=== PATIENT | female | born 1930 | race Asian ===

== ENCOUNTER 2016-09-10 17:53 | Emergency (ER) | payer OTHER ==
[~2016-09-10] VITALS: Ht 154.9 cm; Wt 76.3 kg
[2016-09-10] MEDS ORDERED: PROP10 PO (17:57)
[2016-09-10] MEDS ORDERED: VALS160T2 PO (17:57)
[2016-09-10] MEDS ORDERED: ATOR10TA84 PO (17:57)
[2016-09-10] MEDS ORDERED: METF500T4 PO (17:57)
[2016-09-10] MEDS ORDERED: AMLO-512 PO (17:57)
[2016-09-10 18:50] LABS: GLUCOSE,POINT OF CARE 198 MG/DL (70-110)
[2016-09-10] MEDS ORDERED: ALBUTEROL SULFATE 2.5 MG/0.5 ML NEB SOLUTION NEB ONE (20:00)
[2016-09-10 20:07] LABS: GLUCOSE,POINT OF CARE 117 MG/DL (70-110)
[2016-09-10 20:30] LABS: BASOPHILS % (AUTO) 0.4 % (0.0-2.0); EOSINOPHILS % (AUTO) 1.7 % (1.0-6.0); HEMATOCRIT 37.6 % (36-46); HEMOGLOBIN 12.2 g/dL (12.0-16.0); LYMPHOCYTES # (AUTO) 1.7 K/uL (1.0-4.8); LYMPHOCYTES % (AUTO) 17.1 % (22.0-44.0); MEAN CORPUSCULAR HEMOGLOBIN 29.1 pg (26.0-34.0); MEAN CORPUSCULAR HGB CONC 32.3 G/dL (31.0-37.0); MEAN CORPUSCULAR VOLUME 90 fL (80-100); MONOCYTES # (AUTO) 0.9 K/uL (0.1-1.0); MONOCYTES % (AUTO) 9.7 % (2.0-9.0); NEUTROPHILS # (AUTO) 6.9 K/uL (1.8-7.7); NEUTROPHILS % (AUTO) 71.1 % (40.0-70.0); PLATELET COUNT (AUTO) 243 K/uL (150-450); RED BLOOD CELL COUNT(AUTO) 4.18 MIL/uL (4.00-5.20); RED CELL DISTRIBUTION WIDTH 14.1 % (11.5-14.5); WHITE BLOOD COUNT (AUTO) 9.7 K/uL (4.5-11.0)
[2016-09-10 20:32] LABS: ANION GAP 3 mmol/L (8-16); CALCIUM, TOTAL 9.4 mg/dL (8.8-10.5); CARBON DIOXIDE 31 mmol/L (22-29); CHLORIDE 102 mmol/L (98-107); CREATININE 0.82 mg/dL (0.60-1.30); GLOMERULAR FILTR. RATE CALC > 60 mL/min (>60); SODIUM SERUM 136 mmol/L (136-145); UREA NITROGEN, BLOOD 23 mg/dL (7-18)
[2016-09-10 20:39] LABS: ALANINE AMINOTRANSFERASE 27 U/L (12-78); ALBUMIN 3.2 g/dL (3.4-5.0); ASPARTATE AMINOTRANSFERASE 21 U/L (15-37); BILIRUBIN,TOTAL 0.3 mg/dL (0.1-1.0); TOTAL PROTEIN, SERUM 7.3 g/dL (6.4-8.2)
[2016-09-10 20:52] LABS: B-TYPE NATRIURETIC PEPTIDE 89 pg/mL (0-100)
[2016-09-10] MEDS ORDERED: IPRATROPIUM BROMIDE 0.5 MG/2.5 ML NEB SOLUTION NEB ONE (21:15)
[2016-09-10] MEDS ORDERED: PredniSONE 20 MG TABLET PO ONE (21:30)
[2016-09-10 21:50] VITALS: BP 141/82
[2016-09-10] MEDS ORDERED: ALBUTEROL SULFATE HFA 90 MCG/PUFF 8 GM INHALER IH ONE (22:00)
== END 2016-09-10 22:58 | disposition home or self-care (01) ==
LOC: EMS 17:54
DX: R05 Cough (principal); E78.00 Pure hypercholesterolemia, unspecified; E11.9 Type 2 diabetes mellitus without complications; I11.0 Hypertensive heart disease with heart failure; I50.9 Heart failure, unspecified
CPT/HCPCS: 36415; 71020; 80053; 82962; 83880; 84484; 85025; 85379; 93005; 94060; 94640; 99285; J7512; J3535

== ENCOUNTER → 2016-12-03 | Outpatient (CLI) | payer OTHER ==
[~2016-12-03] MED LIST: AMLO-512 PO; ATOR10TA84 PO; METF500T4 PO; PROP10 PO; VALS160T2 PO
== END | disposition home or self-care (01) ==
LOC: RADPV 11:00
PROVIDERS: ATTEND Internal Medicine
DX: M51.37 Other intervertebral disc degeneration, lumbosacral region (principal); M47.816 Spondylosis without myelopathy or radiculopathy, lumbar region; M85.88 Other specified disorders of bone density and structure, other site; I70.0 Atherosclerosis of aorta; M16.0 Bilateral primary osteoarthritis of hip; Z90.49 Acquired absence of other specified parts of digestive tract
CPT/HCPCS: 72100; 72170

== ENCOUNTER 2017-11-15 20:55 | Emergency (ER) | payer OTHER ==
[~2017-11-15] VITALS: Ht 149.9 cm; Wt 77.3 kg
[~2017-11-15 20:55] MED LIST changes: -PROP10 PO; +PROP10TA73 PO
[2017-11-15] MEDS ORDERED: GABA-529 PO (21:10)
[2017-11-15] MEDS ORDERED: HYDR-2924 PO (21:10)
[2017-11-15] MEDS ORDERED: DOXY100C PO (21:10)
[2017-11-15] MEDS ORDERED: DOCU250C91 PO (21:10)
[2017-11-15 21:47] LABS: BASOPHILS % (AUTO) 3.9 % (0.0-2.0); EOSINOPHILS % (AUTO) 2.1 % (1.0-6.0); HEMATOCRIT 36.5 % (36-46); HEMOGLOBIN 11.8 g/dL (12.0-16.0); LYMPHOCYTES # (AUTO) 1.2 K/uL (1.0-4.8); LYMPHOCYTES % (AUTO) 14.4 % (22.0-44.0); MEAN CORPUSCULAR HEMOGLOBIN 29.7 pg (26.0-34.0); MEAN CORPUSCULAR HGB CONC 32.4 G/dL (31.0-37.0); MEAN CORPUSCULAR VOLUME 92 fL (80-100); MONOCYTES # (AUTO) 0.9 K/uL (0.1-1.0); MONOCYTES % (AUTO) 9.9 % (2.0-9.0); NEUTROPHILS % (AUTO) 69.7 % (40.0-70.0); PLATELET COUNT (AUTO) 188 K/uL (150-450); RED BLOOD CELL COUNT(AUTO) 3.98 MIL/uL (4.00-5.20); RED CELL DISTRIBUTION WIDTH 13.8 % (11.5-14.5)
[2017-11-15 22:02] LABS: ANION GAP 5 mmol/L (8-16); CALCIUM, TOTAL 8.6 mg/dL (8.8-10.5); CARBON DIOXIDE 28 mmol/L (22-29); CHLORIDE 105 mmol/L (98-107); CREATININE 1.01 mg/dL (0.60-1.30); GLOMERULAR FILTR. RATE CALC 52 mL/min (>60); GLUCOSE,RANDOM 116 mg/dL (70-110); POTASSIUM 4.1 mmol/L (3.5-5.1); SODIUM SERUM 138 mmol/L (136-145); UREA NITROGEN, BLOOD 25 mg/dL (7-18)
[2017-11-15 22:09] LABS: ALANINE AMINOTRANSFERASE 21 U/L (12-78); ALBUMIN 2.9 g/dL (3.4-5.0); ALKALINE PHOSPHATASE 45 U/L (46-116); ASPARTATE AMINOTRANSFERASE 19 U/L (15-37); BILIRUBIN,TOTAL 0.2 mg/dL (0.1-1.0); CREATINE KINASE, TOTAL 48 U/L (26-192)
[2017-11-15 22:22] LABS: B-TYPE NATRIURETIC PEPTIDE 250 pg/mL (0-100)
[2017-11-15] MEDS ORDERED: ACETAMINOPHEN 325 MG TABLET PO ONE (23:00)
[2017-11-15] MEDS ORDERED: NITROGLYCERIN 2% (1 GM=INCH) PACKET TP ONE (23:30)
[2017-11-16 00:24] LABS: APPEARANCE,URINE CLOUDY (CLEAR); BILIRUBIN,URINE NEGATIVE (NEGATIVE); GLUCOSE, URINE (UA) NEGATIVE (NEGATIVE); KETONES,URINE NEGATIVE (NEGATIVE); LEUKOCYTE ESTERASE ,URINE TRACE (NEGATIVE); NITRATE,URINE POSITIVE (NEGATIVE); OCCULT BLOOD,URINE NEGATIVE (NEGATIVE); PROTEIN,URINE SEE CONFIRM (NEGATIVE); UROBILINOGEN,URINE 0.2 mg/dL (<=1.0)
[2017-11-16 00:41] LABS: SULFOSALICYLIC ACID,URINE 1+ (Negative)
[2017-11-16 00:42] LABS: BACTERIA,URINE Moderate /HPF (None Seen); RBC,URINE 0-2 /HPF (0-2); SQUAMOUS EPITHELIAL CELL,UR Rare /LPF (None Seen)
[2017-11-16 01:15] VITALS: BP 136/61
== END 2017-11-16 02:43 | disposition short-term general hospital (02) ==
LOC: EMS 20:59
DX: R07.89 Other chest pain (principal); I11.0 Hypertensive heart disease with heart failure; I50.9 Heart failure, unspecified; E78.00 Pure hypercholesterolemia, unspecified; E11.9 Type 2 diabetes mellitus without complications
CPT/HCPCS: 82962; 87086; 93005; 99285